=== PATIENT | female | born 1995 | race Caucasian/White ===

== ENCOUNTER 2022-03-10 07:19 | Outpatient (CLI) | payer OTHER, BC, SELFPAY ==
--- NOTE | 2022-03-10 07:15 | CRLHL7_ITS ---
For Patients: As a result of the Century Cures Act, medical imaging exams and procedure reports are released immediately into your electronic medical record. You may view this report before your referring provider. If you have questions, please contact your health care provider. INDICATION: nausea and vomiting COMPARISON: CT 05/27/2017 TECHNIQUE: Real time montalvo scale imaging and color Doppler analysis was performed of the right upper quadrant. FINDINGS: The patient`s liver is of normal size. Focal hyperechoic lesion right hepatic lobe measuring 1.3 x 1.2 x 1.1 cm. There is a normal appearance of the hepatic IVC and proximal abdominal aorta. There is no evidence of ascites. The gallbladder is of normal size and there is no evidence of intraluminal stones or sludge. The gallbladder wall measures 2 mm in thickness. The common bile duct is of normal size and measures 4 mm in diameter at the level of the floyd hepatis. The pancreas appears normal. There is no evidence of a stone or hydronephrosis within the right kidney. Focus of non shadowing increased echogenicity within the mid right kidney measuring 6 x 4 x 5 millimeters. The right kidney measures 9.6 cm in length. IMPRESSION: Benign intrahepatic hemangioma within the right hepatic lobe measuring 1.3 cm. 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 Remainder normal. Dictated by Forest Bishop MD @ 03/10/2022 9:59:12 AM (Electronically Signed)
== END 2022-03-10 07:20 | disposition home or self-care (01) ==
PROVIDERS: PCP Family Medicine
DX: R11.2 Nausea with vomiting, unspecified (principal); D17.71 Benign lipomatous neoplasm of kidney; K21.9 Gastro-esophageal reflux disease without esophagitis; R10.11 Right upper quadrant pain
CPT/HCPCS: 76705

== ENCOUNTER 2022-03-31 11:15 | Outpatient (CLI) | payer OTHER, BC, SELFPAY ==
[2022-03-31 13:40] LABS: Ferritin* 18.8 ng/mL (6.24-137.0)
== END 2022-03-31 11:16 | disposition home or self-care (01) ==
LOC: NFLDREF 11:21
PROVIDERS: PCP Family Medicine; Visit Provider Otolaryngology
DX: G25.81 Restless legs syndrome (principal); G47.9 Sleep disorder, unspecified
CPT/HCPCS: 82728

== ENCOUNTER 2022-05-05 19:46 | Outpatient (CLI) | payer OTHER, BC, SELFPAY ==
--- NOTE | 2022-05-18 11:43 | W.PM.SLEEP ---
Sleep Study Details Details Interpreting Provider: Ryan Ames MD Date of Sleep Study: 05/05/22 Sleep Study Details: STUDY TYPE:? Home ? BMI:? 25.8 ORDERING PROVIDER:? Avila INDICATION:? Concerns about sleep apnea ? SLEEP SUMMARY:? Monitor x3 171.2 minutes RESPIRATORY SUMMARY:? AHI is 7. The entire study was done in the supine position. Low oxygen saturation was 91, there was no snoring PERIODIC LIMB MOVEMENTS OF SLEEP:? Not recorded CARDIAC:? 51-113, mean 63.7 IMPRESSION:? Mild obstructive sleep apnea RECOMMENDATION: If the patient is symptomatic treatment options would include CPAP, dental appliance and/or airway expansion surgery
== END 2022-05-05 19:47 | disposition home or self-care (01) ==
PROVIDERS: PCP Family Medicine; Visit Provider Otolaryngology
DX: G47.33 Obstructive sleep apnea (adult) (pediatric) (principal)
CPT/HCPCS: 95806